=== PATIENT | female | born 1950 | race Two or more races ===

== ENCOUNTER 2023-06-11 06:35 | Day surgery (SDC) | payer BC ==
[2023-06-11] VITALS (7 sets, daily range): BP systolic 143–178; BP diastolic 58–91; PULSE 53–65; RESP 14–18; TEMP 97.4; O2SAT 90–93
[~2023-06-11] VITALS: Ht 160 cm; Wt 98.4 kg
[~2023-06-11 06:35] MED LIST: CHOL50007 PO; CYAN1SUB5 SL; FLUO-125 PO; HYDR-3682 PO; OMEP20TA PO; POM; PRAV20TA3 PO; PROP40TA6 PO; TOPI50TA53 PO; VERA80TA4 PO
[2023-06-11] MEDS ORDERED: LIDOCAINE 2%HCL (LOCAL ANESTH.) INJ 20ML MDV ONE (08:23)
[2023-06-11] MEDS ORDERED: IODIXANOL 320MG/ML 100ML BTL IV ONE (08:23)
[2023-06-11] MEDS ORDERED: HEPARIN IN NS 1000Units/500mL 1,500 ML ONE (08:24)
[2023-06-11] MEDS ORDERED: ANGIOMAX 250 MG VIAL IV ONE (08:54)
[2023-06-11] MEDS ORDERED: HEPARIN SODIUM (PORCINE) 5000 UNITS/ML 1ML VIAL ONE (08:54)
[2023-06-11] MEDS ORDERED: VERAPAMIL 2.5MG/ML INJ 2ML VIAL IV ONE (08:54)
[2023-06-11] MEDS ORDERED: fentaNYL CITRATE 100 MCG/2 ML VL ONE (08:55)
[2023-06-11] MEDS ORDERED: MIDAZOLAM HCL 2MG/2ML 2ml VIAL (1mg/ml) ONE (08:55)
[2023-06-11] MEDS ORDERED: SODIUM CHL 0.9% 0 ML ONE (08:55)
== END 2023-06-11 12:00 | disposition home or self-care (01) ==
LOC: CATH 06:35
PROVIDERS: ATTEND Internal Medicine
DX: I25.119 Atherosclerotic heart disease of native coronary artery with unspecified angina pectoris (principal); R94.39 Abnormal result of other cardiovascular function study; F17.210 Nicotine dependence, cigarettes, uncomplicated; Z88.8 Allergy status to other drugs, medicaments and biological substances; Z88.0 Allergy status to penicillin; Z88.6 Allergy status to analgesic agent; Z88.5 Allergy status to narcotic agent; Z88.1 Allergy status to other antibiotic agents
CPT/HCPCS: 93458; C1725; C1894; J1644; J2250; J3010; Q9967; 99152